=== PATIENT | male | born 1995 | race Caucasian/White ===

== ENCOUNTER 2017-03-04 13:39 | Emergency (ER) | payer SELFPAY ==
[~2017-03-04] VITALS: Wt 72.6 kg
[~2017-03-04 13:39] MED LIST: 'zithromax250 MG PO; CLARITIN10 MG PO; FLONASE ALLERG9.9 ML NAS; MOTRIN600 MG PO; NAPROSYN500 MG PO; PREDNISONE10 MG PO; ROBITUSSIN AC 110 ML PO; TESSALON PERLE100 M1 PO; ULTRAM50 MG PO; ZITHROMAX Z PA250 MG PO
[2017-03-04 13:44] VITALS: BP 125/74
[2017-03-04] MEDS ORDERED: BROMFED DM COU473 ML PO (14:45)
== END 2017-03-04 14:49 | disposition home or self-care (01) ==
LOC: ED 13:39
DX: J00 Acute nasopharyngitis [common cold] (principal); F17.200 Nicotine dependence, unspecified, uncomplicated; Z88.8 Allergy status to other drugs, medicaments and biological substances

== ENCOUNTER 2023-05-21 12:55 | Emergency (ER) | payer BC ==
[~2023-05-21] VITALS: Ht 177.8 cm; Wt 81.6 kg
[~2023-05-21 12:55] MED LIST changes: +BROMFED DM COU473 ML PO
[2023-05-21 13:04] VITALS: BP 143/79
== END 2023-05-21 15:28 | disposition home or self-care (01) ==
LOC: ED 12:55
DX: J06.9 Acute upper respiratory infection, unspecified (principal); Z20.822 Contact with and (suspected) exposure to COVID-19; F17.290 Nicotine dependence, other tobacco product, uncomplicated; Z88.8 Allergy status to other drugs, medicaments and biological substances; Z79.899 Other long term (current) drug therapy

== ENCOUNTER 2024-04-20 09:27 | Emergency (ER) | payer SELFPAY ==
[~2024-04-20] VITALS: Ht 182.8 cm; Wt 83.9 kg
[2024-04-20 09:57] VITALS: BP 128/82
[2024-04-20] MEDS ORDERED: AMOX-CLAV 875-1 EACH PO (10:11)
== END 2024-04-20 10:18 | disposition home or self-care (01) ==
LOC: ED 09:27
DX: J32.9 Chronic sinusitis, unspecified (principal); Z88.8 Allergy status to other drugs, medicaments and biological substances